=== PATIENT | male | born 1955 | race Caucasian/White ===

== ENCOUNTER 2017-10-27 23:08 | Emergency (ER) | payer MEDICARE ==
--- NOTE | 2017-10-27 23:42 | ERPHSYRPT ---
- History of Present Illness Time Seen by Provider: 10/27/17 23:30 Historian: patient Exam Limitations: no limitations Patient Subjective Stated Complaint: pt states his blood sugar was 308 approx an hour and a half ago. states he took a walke and rechecked and was 134, checked again half hour after and was 174. when asked, pt states he has been having some chest pressure and shortnes of breath since his walk. Triage Nursing Assessment: pt alert and oriented, asnwers questions approp. pt ambulatory with steady gait noted. pt short of breath with exertion. exp wheeze noted to lt lower, occasional nonproductive cough. pt sinus rhythm 80's to 90's on monitor. Physician History: 62 y/o male with history partial pancreatic resection and CAD with stents currently on ASA and plavix comes to the ER with complaints of having elevated blood sugars of 308 and chest pain. Pt states having chest pain and dizziness at the time, started drinking a lot of water and rechecked the finger stick which was 174. Pt describes the pain as pressure like, intermittent, as high as 4/10 and pt did not take any nitro. Pt also admits to dizziness and shortness of breath. Pt is not diabetic but has been checking his sugars lately. Pt denies any abdominal pain, nausea, vomiting or diarrhea. Timing/Duration: today Activities at Onset: none Quality: pressure Location: substernal Chest Pain Radiation: no radiation Severity of Pain-Max: mild Severity of Pain-Current: mild Modifying Factors: Improves With: nothing Associated Symptoms: shortness of breath, weakness Prior Chest Pain/Cardiac Workup: cardiac cath, heart attack Nitro Today/Relief: no nitro taken today Aspirin Treatment Today: 81 mg x 1 Allergies/Adverse Reactions: Penicillins Allergy (Verified 10/27/17 23:34) Sulfa (Sulfonamide Antibiotics) Allergy (Verified 10/27/17 23:34) Home Medications: Albuterol Sulfate [Proair Hfa] 8.5 gm IH Q4H PRN PRN 10/27/17 [History] Aspirin EC 81 mg [Ecotrin 81 mg] 81 mg PO DAILY 10/27/17 [History] Budesonide/Formoterol Fumarate [Symbicort 160-4.5 Mcg Inhaler] 10.2 gm IH DAILY 10/27/17 [History] Clopidogrel Bisulfate 75 mg [PLAVIX 75 MG Tablet] 75 mg PO DAILY 10/27/17 [History] Metoprolol Succinate 25 mg Xl* [Toprol-Xl 25MG Tablets] 25 mg PO DAILY [History] Hx Tetanus, Diphtheria Vaccination/Date Given: No (unknown) Hx Influenza Vaccination/Date Given: No Hx Pneumococcal Vaccination/Date Given: Yes Immunizations Up to Date: No - Review of Systems Constitutional: No Fever, No Chills Eyes: No Symptoms Ears, Nose, & Throat: No Symptoms Respiratory: Dyspnea, Dyspnea on Exertion (FLANAGAN), No Cough Cardiac: Chest Pain, No Edema, No Syncope Abdominal/Gastrointestinal: No Abdominal Pain, No Nausea, No Vomiting, No Diarrhea, No Constipation Genitourinary Symptoms: Frequency, No Dysuria Musculoskeletal: No Back Pain, No Neck Pain Skin: No Rash Neurological: Dizziness, No Focal Weakness, No Sensory Changes Psychological: No Symptoms Endocrine: No Symptoms All Other Systems: Reviewed and Negative - Past Medical History Pertinent Past Medical History: Yes Neurological History: Stroke Cardiac History: Coronary Artery Disease, High Cholesterol, Myocardial Infarction ([place]) Respiratory History: COPD GI Medical History: Liver Cancer, Other Other Medical History: PANCREATIC CA,SMALL INSTESTINE CA,NUEROGENIC BLADDER - Past Surgical History Past Surgical History: Yes Gastrointestinal: Bowel Surgery, Cholecystectomy, Other Other Surgical History: SPINAL SURG, ARM AND LEG FRACTURE SURG,G TUBE. whipple lst year - Social History Smoking Status: Current every day smoker How long have you smoked: 50 yrs Exposure to second hand smoke: Yes Drug Use: none Patient Lives Alone: No - Nursing Vital Signs Nursing Vital Signs: Initial Vital Signs Temperature 97.8 F 10/27/17 23:22 Pulse Rate 88 10/27/17 23:22 Respiratory Rate 22 10/27/17 23:22 Blood Pressure 109/68 10/27/17 23:22 O2 Sat by Pulse Oximetry 95 10/27/17 23:22 Pain Scale Pain Intensity 2 - Physical Exam General Appearance: no apparent distress, alert Eye Exam: PERRL/EOMI, eyes nml inspection Ears, Nose, Throat Exam: normal ENT inspection, moist mucous membranes Neck Exam: normal inspection, non-tender, supple, full range of motion Respiratory Exam: normal breath sounds, lungs clear, No chest tenderness, No respiratory distress, No diminished breath sounds Cardiovascular Exam: regular rate/rhythm, normal heart sounds, normal peripheral pulses Gastrointestinal/Abdomen Exam: soft, normal bowel sounds, No tenderness, No mass Back Exam: normal inspection, No CVA tenderness, No vertebral tenderness Extremity Exam: normal inspection, normal range of motion Neurologic Exam: alert, oriented x 3, cooperative, normal mood/affect, sensation nml, No motor deficits Skin Exam: normal color, warm, dry SpO2: 95 Oxygen Delivery: Room Air - Course Nursing assessment & vital signs reviewed: Yes EKG Interpreted by Me: RATE, NORMAL AXIS, NORMAL INTERVALS, NORMAL QRS, NORMAL ST-T Ordered Tests: Active Orders 24 hr Category Date Time Status Legal Counsel STAT Care 10/27/17 23:35 Active IV Insertion STAT Care 10/27/17 23:35 Active CHEST 1 VIEW (PORTABLE) Stat Exams 10/27/17 23:35 Taken CBC W DIFF Stat Lab 10/27/17 23:44 Completed CK-Creatinine Phosphokinase Stat Lab 10/27/17 23:44 Completed CMP Stat Lab 10/27/17 23:44 Completed NT PRO BNP Stat Lab 10/27/17 23:44 Completed PROTIME WITH INR Stat Lab 10/27/17 23:44 Completed PTT Stat Lab 10/27/17 23:44 Completed Ph Stat Lab 10/28/17 00:01 Ordered TROPONIN Q3H Lab 10/27/17 23:44 Completed TROPONIN Q3H Lab 10/28/17 02:45 Ordered TROPONIN Q3H Lab 10/28/17 05:45 Ordered TROPONIN Q3H Lab 10/28/17 08:45 Ordered TROPONIN Q3H Lab 10/28/17 11:45 Ordered Medication Summary Generic Name Dose Route Start Last Admin Trade Name Freq PRN Reason Stop Dose Admin Sodium Chloride 500 mls @ 500 mls/hr 10/28/17 00:05 10/28/17 00:12 Sodium Chloride 0.9% 500 Ml IV 10/28/17 01:04 500 mls/hr .Q1H ONE Administration Discontinued Medications Generic Name Dose Route Start Last Admin Trade Name Freq PRN Reason Stop Dose Admin Sodium Chloride Confirm 10/28/17 00:06 Sodium Chloride 0.9% 500 Ml Administered 10/28/17 00:07 Dose 500 mls @ ud IV .STK-MED ONE Lab/Rad Data: Laboratory Result Diagrams 10/27/17 23:44 10/27/17 23:44 Laboratory Results 0210/27/17 10/27/17 Range/Units 23:44 23:44 23:44 WBC (4.0-10.5) K/mm3 RBC (4.1-5.6) M/mm3 Hgb (12.5-18.0) gm/dl Hct (42-50) % MCV (78-100) fl MCH (26-32) pg MCHC (32-36) g/dl RDW (11.5-14.0) % Plt Count (150-450) K/mm3 MPV (6-9.5) fl Gran % (36.0-66.0) % Lymphocytes % (24.0-44.0) % Monocytes % (0.0-12.0) % Eosinophils % (0.00-5.0) % Basophils % (0.0-0.4) % Basophils # (0-0.4) INR 1.05 (0.8-3.0) APTT 29.6 (24.1-36.1) SECONDS Sodium 139 (136-145) mEq/L Potassium 4.2 (3.5-5.1) mEq/L Chloride 104 (98-107) mEq/L Carbon Dioxide 25.4 (21-32) mEq/L Anion Gap 14.0 (5-15) MEQ/L BUN 12 (9-20) mg/dL Creatinine 1.18 (0.55-1.30) mg/dl Estimated GFR > 60 ML/MIN Glucose 121 H (70-110) MG/DL Calcium 8.4 L (8.5-10.1) mg/dL Total Bilirubin 0.20 (0.2-1.0) mg/dL AST 14 L (15-37) U/L ALT 21 (12-78) U/L Alkaline Phosphatase 71 (46-116) U/L Creatine Kinase 83 (39-308) U/L Troponin I < 0.017 (0.000-0.056) ng/ml NT-Pro-B Natriuret Pep 42 (0-125) pg/ml Serum Total Protein 7.0 (6.4-8.2) gm/dL Albumin 3.4 (3.4-5.0) g/dL 10/27/17 Range/Units 23:44 WBC 9.2 (4.0-10.5) K/mm3 RBC 5.28 (4.1-5.6) M/mm3 Hgb 14.2 (12.5-18.0) gm/dl Hct 43.5 (42-50) % MCV 82.4 (78-100) fl MCH 26.9 (26-32) pg MCHC 32.6 (32-36) g/dl RDW 14.9 H (11.5-14.0) % Plt Count 306 (150-450) K/mm3 MPV 9.1 (6-9.5) fl Gran % 60.3 (36.0-66.0) % Lymphocytes % 27.6 (24.0-44.0) % Monocytes % 9.7 (0.0-12.0) % Eosinophils % 1.7 (0.00-5.0) % Basophils % 0.7 (0.0-0.4) % Basophils # 0.06 (0-0.4) INR (0.8-3.0) APTT (24.1-36.1) SECONDS Sodium (136-145) mEq/L Potassium (3.5-5.1) mEq/L Chloride (98-107) mEq/L Carbon Dioxide (21-32) mEq/L Anion Gap (5-15) MEQ/L BUN (9-20) mg/dL Creatinine (0.55-1.30) mg/dl Estimated GFR ML/MIN Glucose (70-110) MG/DL Calcium (8.5-10.1) mg/dL Total Bilirubin (0.2-1.0) mg/dL AST (15-37) U/L ALT (12-78) U/L Alkaline Phosphatase (46-116) U/L Creatine Kinase (39-308) U/L Troponin I (0.000-0.056) ng/ml NT-Pro-B Natriuret Pep (0-125) pg/ml Serum Total Protein (6.4-8.2) gm/dL Albumin (3.4-5.0) g/dL - Progress Progress: improved Progress Note: 10/28/17 00:30 The blood glucose is 121 and the rest of the labs are within normal limits. The EKG, troponin and EKG are unremarkable but the patient's chest pain story is too real, especially with his cardiac history. I spoke to Dr Rios who wants the patient to be transferred to [facility]. Pt has been accepted by Dr Worthington in the ER. - Departure Time of Disposition: 00:34 Departure Disposition: Transfer Clinical Impression: Chest pain Qualifiers: Chest pain type: unspecified Qualified Code(s): R07.9 - Chest pain, unspecified Condition: Fair Critical Care Time: Yes Critical Care Time(excluding separately billable procedures): 30-74 minutes Referrals: MATT DE LA FUENTE [Primary Care Provider] -
[2017-10-27 23:48] LABS: BASOPHIL % 0.7 % (0.0-0.4); Basophil (Absolute #) 0.06 (0-0.4); Eosinophil % 1.7 % (0.00-5.0); Eosinophil (Absolute #) 0.16 (0-0.5); Granulocyte Absolute (ANC) 5.56 (1.4-6.9); Granulocytes % 60.3 % (36.0-66.0); Hematocrit 43.5 % (42-50); Hemoglobin 14.2 gm/dl (12.5-18.0); Lymphocyte (Absolute #) 2.54 (1.0-4.6); Lymphocytes % 27.6 % (24.0-44.0); Mean Cell Volume 82.4 fl (78-100); Mean Corpuscular Hemoglobin 26.9 pg (26-32); Mean Corpuscular Hgb Concent. 32.6 g/dl (32-36); Mean Platelet Volume 9.1 fl (6-9.5); Monocyte (Absolute #) 0.89 (0.0-1.3); Monocytes % 9.7 % (0.0-12.0); Platelet Count 306 K/mm3 (150-450); Red Blood Count 5.28 M/mm3 (4.1-5.6); Red Cell Distribution Width 14.9 % (11.5-14.0); White Blood Count 9.2 K/mm3 (4.0-10.5)
[2017-10-28 00:05] LABS: INR 1.05 (0.8-3.0)
[2017-10-28] MEDS ORDERED: Sodium Chloride 0.9% 500 ML 500 ML IV ONE ×2 (00:05→00:06)
[2017-10-28 00:07] LABS: PTT 29.6 SECONDS (24.1-36.1)
[2017-10-28 00:13] LABS: ALBUMIN 3.4 g/dL (3.4-5.0); ALKALINE PHOSPHATASE 71 U/L (46-116); BLOOD UREA NITROGEN 12 mg/dL (9-20); CHLORIDE 104 mEq/L (98-107); CK-Creatinine Phosphokinase 83 U/L (39-308); Calcium 8.4 mg/dL (8.5-10.1); Carbon Dioxide 25.4 mEq/L (21-32); Creatinine 1 1.18 mg/dl (0.55-1.30); EST GLOMERULAR FILTRATION RATE > 60 ML/MIN; Glucose 121 MG/DL (70-110); NT PRO BNP 42 pg/ml (0-125); Potassium 4.2 mEq/L (3.5-5.1); SGOT/AST 14 U/L (15-37); SGPT/ALT 21 U/L (12-78); SODIUM 139 mEq/L (136-145)
[2017-10-28 01:05] VITALS: BP 109/66; PULSE 76; O2SAT 98
--- NOTE | 2017-10-28 09:10 | XRAY ---
Indication: Chest pain. Comparison: August 07, 2016. Portable chest again demonstrates normal heart and lungs. Bony thorax intact again with lower cervical fusion surgery and old right fifth rib fracture. No new/acute findings.
== END 2017-10-28 01:23 | disposition short-term general hospital (02) ==
LOC: ED 23:08
DX: R07.9 Chest pain, unspecified (principal); R42 Dizziness and giddiness; R06.02 Shortness of breath
CPT/HCPCS: 36000; 36415; 71045; 80053; 82550; 83880; 84484; 85025; 85610; 85730; 93041; 96360; 96361; 99285

== ENCOUNTER 2018-09-13 15:47 | Emergency (ER) | payer MEDICARE ==
[2018-09-13] MEDS ORDERED: Norco 10/325 MG Tablet PO ONE (16:07)
[2018-09-13] MEDS ORDERED: Norco 10/325 MG Tablet ONE (16:10)
--- NOTE | 2018-09-13 16:20 | ERPHSYRPT ---
- History of Present Illness Time Seen by Provider: 09/13/18 16:05 Source: patient Exam Limitations: clinical condition Patient Subjective Stated Complaint: fell off side of step and twisted right ankle Triage Nursing Assessment: Pt c/o of right ankle pain after slipping off his step and twisting his ankle, right ankle lateral side swollen and bruised, pulses normal, can not apply weight, rates pain 10/10 Physician History: Patient with a history of pancreatic cancer, coronary artery disease, with stents states he slipped off his front porch steps. Patient complains of pain with swelling over the outer aspect of the right ankle. Has severe pain upon attempted weight bearing. Method of Injury: twisted Occurred: just prior to arrival Quality: constant Severity of Pain-Max: severe Severity of Pain-Current: severe Lower Extremities Pain: ankle: right Modifying Factors: Improves With: movement Associated Symptoms: unable to bear weight Allergies/Adverse Reactions: Penicillins Allergy (Verified 09/13/18 16:01) Sulfa (Sulfonamide Antibiotics) Allergy (Verified 09/13/18 16:01) Home Medications: Albuterol Sulfate [Proair Hfa] 8.5 gm IH Q4H PRN PRN 10/27/17 [History] Aspirin EC 81 mg [Ecotrin 81 mg] 81 mg PO DAILY 10/27/17 [History] Budesonide/Formoterol Fumarate [Symbicort 160-4.5 Mcg Inhaler] 10.2 gm IH DAILY 10/27/17 [History] Clopidogrel Bisulfate 75 mg [PLAVIX 75 MG Tablet] 75 mg PO DAILY 10/27/17 [History] Metoprolol Succinate 25 mg Xl* [Toprol-Xl 25MG Tablets] 25 mg PO DAILY [History] Isosorbide Mononitrate [Isosorbide Mononitrate ER] 30 mg PO DAILY 09/13/18 [ History] Prednisone 10 mg [Deltasone 10 mg] 10 mg PO DAILY 09/13/18 [History] Hx Tetanus, Diphtheria Vaccination/Date Given: No (unknown) Hx Influenza Vaccination/Date Given: No Hx Pneumococcal Vaccination/Date Given: Yes - Review of Systems Musculoskeletal: Injury, Joint Pain, Joint Swelling Skin: No Symptoms Neurological: No Symptoms Psychological: No Symptoms - Past Medical History Pertinent Past Medical History: Yes Neurological History: Stroke Cardiac History: Coronary Artery Disease, High Cholesterol, Myocardial Infarction ([place]) Respiratory History: COPD GI Medical History: Liver Cancer, Other Other Medical History: PANCREATIC CA,SMALL INSTESTINE CA,NUEROGENIC BLADDER - Past Surgical History Past Surgical History: Yes Gastrointestinal: Bowel Surgery, Cholecystectomy, Other Other Surgical History: SPINAL SURG, ARM AND LEG FRACTURE SURG,G TUBE. whipple lst year - Social History Smoking Status: Current every day smoker How long have you smoked: 50 yrs Exposure to second hand smoke: Yes Drug Use: none Patient Lives Alone: No - Nursing Vital Signs Nursing Vital Signs: Initial Vital Signs Temperature 97.9 F 09/13/18 15:52 Pulse Rate 106 H 09/13/18 15:52 Blood Pressure 116/79 09/13/18 15:52 O2 Sat by Pulse Oximetry 97 09/13/18 15:52 Pain Scale Pain Intensity 10 - Physical Exam General Appearance: mild distress Ankle Exam: right ankle: limited range of motion, pain, soft tissue tenderness, swelling (MODERATE SWELLING WITH TENDERNESS, NO CREPITUS, ECCHYMOSIS, NO JOINT LAXITY UPON VARUS/VALGUS STRESS, NEGATIVE ANTERIOR DRAW SIGN), other (RIGHT PEDIS PULSE 2+) DTR - Lower Extremities Exam: knee (R): 2+, knee (L): 2+, ankle (R): 2+, ankle ( L): 2+ Neuro/Tendon Exam: normal sensation, normal motor functions Mental Status Exam: alert, oriented x 3, cooperative SpO2 Interpretation: normal SpO2: 97 Oxygen Delivery: Room Air - Radiology Exams Right Ankle X-ray Interpretation: Interpreted by me, Negative, No Fracture (MARKED SOFT TISSUE SWELLING, NO FRACTURE OR DISLOCATION) Ordered Tests: Active Orders 24 hr Category Date Time Status Crutches STAT Care 09/13/18 16:11 Active ANKLE (3 VIEWS) Stat Exams 09/13/18 16:07 Ordered Medication Summary Discontinued Medications Generic Name Dose Route Start Last Admin Trade Name Freq PRN Reason Stop Dose Admin Hydrocodone Bitart/Acetaminophen 1 tab 09/13/18 16:07 09/13/18 16:11 [place] 10/325 Mg Tablet PO 09/13/18 16:08 1 tab STAT ONE Administration - Progress Progress: pain not gone completely Progress Note: 09/13/18 16:21 ADMINISTERED NORCO 10/325 ORALLY, APPLICATION OF VELCRO ANKLE SPLINT AND CRUTCHES Counseled pt/family regarding: diagnosis, need for follow-up, rad results - Departure Time of Disposition: 16:27 Departure Disposition: Home Clinical Impression: Right ankle strain Condition: Stable Critical Care Time: No Referrals: MATT DE LA FUENTE [Primary Care Provider] - Instructions: Ankle Sprain (DC) Additional Instructions: AMBULATE USING CRUTCHES NONWEIGHT BEARING OF THE RIGHT LOWER EXTREMITY FOR 5 DAYS. MAY REMOVE THE SPLINT TO APPLY ICE OVER THE SWELLING EVERY 4 HOURS, 30 MINUTES FOR 48 HOURS. CONSULT YOUR PRIMARY CARE PROVIDER FOR EVALUATION IN A WEEK. Prescriptions: Hydrocodone/APAP 10/325 mg [[place] 10/325 MG Tablet] 1 tab PO Q6H PRN PRN # 10 tablet MDD 4 PRN Reason: Pain
[2018-09-13 16:30] VITALS: BP 127/79; PULSE 95; O2SAT 94
--- NOTE | 2018-09-13 21:50 | XRAY ---
Indication: Pain and swelling following twisting injury. Comparison: None 3 views of the right ankle demonstrates anterolateral soft tissue swelling. No other bony, articular, or soft tissue abnormalities.
== END 2018-09-13 16:35 | disposition home or self-care (01) ==
LOC: ED 15:47
DX: S96.911A Strain of unspecified muscle and tendon at ankle and foot level, right foot, initial encounter (principal); M25.571 Pain in right ankle and joints of right foot; W10.8XXA Fall (on) (from) other stairs and steps, initial encounter; Y92.008 Other place in unspecified non-institutional (private) residence as the place of occurrence of the external cause; Z79.01 Long term (current) use of anticoagulants; Z79.899 Other long term (current) drug therapy
CPT/HCPCS: 73610; 99283; A9270-GY